=== PATIENT | male | born 1980 | race African-American/Black ===

== ENCOUNTER 2024-04-18 03:33 | Inpatient (IN) | payer MEDICAID ==
[~2024-04-18] VITALS: Ht 182.9 cm; Wt 84.8 kg
[2024-04-18 04:19] VITALS: O2SAT 96
[2024-04-18 05:15] LABS: BASOPHILS % 0.3 % (0.0-2.0); DIFFERENTIAL COMMENT 0; EOSINOPHILS % 0.3 % (0.0-5.0); HEMATOCRIT. 50.5 % (42.0-52.0); HEMOGLOBIN. 16.3 g/dL (14.0-18.0); LYMPHOCYTES % 7.9 % (20.0-50.0); MEAN CORPUSCULAR HEMOGLOBIN 30.6 pg (28.0-32.0); MEAN CORPUSCULAR HGB CONC 32.3 g/dL (31.0-37.0); MEAN CORPUSCULAR VOLUME 94.8 fL (80.0-94.0); MEAN PLATELET VOLUME 10.7 fl (7.4-10.4); NEUTROPHILS % 88.5 % (40.0-76.0); PLATELET 185 x1000/uL (130-400); RED BLOOD CELL COUNT 5.33 mill/uL (4.7-6.1); RED CELL DISTRIBUTION WIDTH 14.6 % (11.6-14.6); WHITE BLOOD COUNT 7.7 x1000/uL (4.5-11.0)
[2024-04-18 05:24] LABS: CHLORIDE 102 mEq/L (98-107); SODIUM 138 mEq/L (136-145)
[2024-04-18 05:25] LABS: CALCIUM 10.2 mg/dL (8.7-10.4); CARBON DIOXIDE 27 mEq/L (21-32)
[2024-04-18 05:30] LABS: GLUCOSE 122 mg/dL (70-105); UREA NITROGEN BLOOD 18 mg/dL (9-23)
[2024-04-18 05:32] LABS: ALANINE AMINOTRANSFERASE 30 IU/L (10-49); ALBUMIN 4.9 g/dL (3.2-4.8); ASPARTATE AMINOTRANSFERASE 20 IU/L (<34); BILIRUBIN DIRECT 0.1 mg/dL (<=3.0); BILIRUBIN TOTAL 0.4 mg/dL (0.1-1.0)
[2024-04-18 06:13] LABS: TROPONIN I HIGH SENSITIVITY < 4 ng/L (3.0-53)
[2024-04-18 06:34] LABS: INR 0.9; PROTHROMBIN TIME 10.6 sec (9.6-11.0)
[2024-04-18] MEDS: ONDANSETRON HCL 4MG/2ML INJ IV NR (08:06)
[2024-04-18] MEDS: KETOROLAC 30MG/ML VIAL IV NR (08:06)
[2024-04-18] MEDS: MORPHINE SULFATE 4 MG/ML INJ (FOR IV/IM USE) IV NR (08:06)
[2024-04-18] MEDS: ONDANSETRON HCL 4MG/2ML INJ IV STA (08:07)
[2024-04-18] MEDS: MORPHINE SULFATE 4 MG/ML INJ (FOR IV/IM USE) IV STA (08:07)
[2024-04-18] MEDS: KETOROLAC 30MG/ML VIAL IV STA (08:07)
[2024-04-18] MEDS ORDERED: HYDRALAZINE 20MG/ML VIAL IV PRN (10:30)
[2024-04-18] MEDS: SODIUM CHLORIDE 0.9% 1,000 ML IV SCH (11:00)
[2024-04-18 11:03] VITALS: BP 121/71; PULSE 18; RESP 20; TEMP 36.6
[2024-04-18] MEDS ORDERED: NALOXONE HCL 0.4MG/ML VIAL IV PRN (11:45)
[2024-04-18] MEDS ORDERED: HYDRALAZINE 10 MG in SODIUM CHLORIDE 0.9% 49.5 ML IV PRN (11:45)
[2024-04-18] MEDS: ONDANSETRON HCL 4MG/2ML INJ IV PRN (11:51)
[2024-04-18] MEDS: MORPHINE SULFATE 2 MG/ML INJ (NOT FOR IM USE) IV PRN (11:51)
[2024-04-18 12:00] VITALS: BP 121/61; PULSE 54; RESP 19; TEMP 36.3; O2SAT 98
[2024-04-18] MEDS: ENOXAPARIN 40MG/0.4ML SYR SUBCUT SCH (12:20)
[2024-04-18] MEDS: ACETAMINOPHEN 325MG TABLET PO PRN (15:23)
[2024-04-18 20:00] VITALS: BP 132/72; PULSE 60; RESP 18; TEMP 36.6; O2SAT 96
[2024-04-19 04:00] VITALS: BP 135/89; PULSE 64; RESP 20; TEMP 36.7; O2SAT 99
[2024-04-19 04:03] LABS: *AMPHETAMINES SCREEN URINE NEGATIVE (NEGATIVE); *BARBITURATES SCREEN URINE NEGATIVE (NEGATIVE); *BENZODIAZEPINES SCREEN URINE NEGATIVE (NEGATIVE); *COCAINE SCREEN URINE NEGATIVE (NEGATIVE); CANNABINOID URINE SCREEN NEGATIVE (NEGATIVE); ECSTASY MDMA SCREEN URINE NEGATIVE (NEGATIVE); METHADONE URINE SCREEN NEGATIVE (NEGATIVE); OPIATES URINE SCREEN PRESUMPTIVE POSITIVE (NEGATIVE); PHENCYCLIDINE URINE SCREEN NEGATIVE (NEGATIVE)
[2024-04-19 04:33] LABS: CLARITY URINE CLEAR (CLEAR); COLOR URINE YELLOW (YELLOW)
[2024-04-19 04:34] LABS: GLUCOSE URINE NEGATIVE (NEGATIVE); KETONES URINE NEGATIVE (NEGATIVE); LEUKOCYTE ESTERASE URINE NEGATIVE (NEGATIVE); NITRITE URINE NEGATIVE (NEGATIVE); OCCULT BLOOD URINE NEGATIVE (NEGATIVE); PROTEIN URINE TRACE (NEGATIVE); SPECIFIC GRAVITY URINE >1.030 (1.005-1.030); UROBILINOGEN URINE 0.2 E.U./dL (0.2-1.0)
[2024-04-19 06:06] LABS: RBC URINE 0-2 /hpf (0-2); WBC URINE 0-2 /hpf (0-2)
[2024-04-19 06:07] LABS: SQUAMOUS EPITHELIAL CELL URINE NONE SEEN /lpf (RARE/1+)
[2024-04-19 06:08] LABS: BACTERIA URINE NONE SEEN
[2024-04-19 08:00] VITALS: BP 120/66; PULSE 63; RESP 21; TEMP 36.4; O2SAT 97
[2024-04-19 08:30] LABS: BASOPHILS % 0.2 % (0.0-2.0); DIFFERENTIAL COMMENT 0; EOSINOPHILS % 0.1 % (0.0-5.0); HEMATOCRIT. 47.7 % (42.0-52.0); HEMOGLOBIN. 15.6 g/dL (14.0-18.0); LYMPHOCYTES % 11.9 % (20.0-50.0); MEAN CORPUSCULAR HEMOGLOBIN 30.7 pg (28.0-32.0); MEAN CORPUSCULAR HGB CONC 32.8 g/dL (31.0-37.0); MEAN CORPUSCULAR VOLUME 93.7 fL (80.0-94.0); MEAN PLATELET VOLUME 10.5 fl (7.4-10.4); MONOCYTES % 11.5 % (2.0-8.0); NEUTROPHILS % 76.3 % (40.0-76.0); PLATELET 157 x1000/uL (130-400); RED BLOOD CELL COUNT 5.09 mill/uL (4.7-6.1); RED CELL DISTRIBUTION WIDTH 14.1 % (11.6-14.6); WHITE BLOOD COUNT 5.7 x1000/uL (4.5-11.0)
[2024-04-19 08:46] LABS: CHLORIDE 108 mEq/L (98-107); POTASSIUM 3.8 mEq/L (3.5-5.1); SODIUM 142 mEq/L (136-145)
[2024-04-19 08:47] LABS: CALCIUM 8.7 mg/dL (8.7-10.4); CARBON DIOXIDE 28 mEq/L (21-32)
[2024-04-19 08:52] LABS: CREATININE 0.9 mg/dL (0.6-1.3); GLUCOSE 119 mg/dL (70-105); UREA NITROGEN BLOOD 17 mg/dL (9-23)
[2024-04-19] MEDS: PANTOPRAZOLE SODIUM 40 MG/VIAL IV SCH (09:13)
[2024-04-19] MEDS: BISACODYL 10MG SUPP PR NR (11:51)
[2024-04-19 12:00] VITALS: BP 130/78; PULSE 50; RESP 20; TEMP 36.4; O2SAT 98
[2024-04-19 16:00] VITALS: BP 128/76; PULSE 62; RESP 20; TEMP 36.4; O2SAT 99
[2024-04-19] MEDS: DEXT 5%/0.9% NACL KCL 20MEQ/L 1,000 ML IV SCH (16:02)
[2024-04-19] MEDS: ZOLPIDEM TARTRATE 5MG TABLET PO PRN (23:28)
[2024-04-20 04:00] VITALS: BP 130/83; PULSE 83; RESP 20; TEMP 36.5; O2SAT 95
[2024-04-20 08:00] VITALS: BP 137/81; PULSE 63; RESP 18; TEMP 37.1; O2SAT 97
[2024-04-20 16:00] VITALS: BP 134/64; PULSE 56; RESP 20; TEMP 36.6; O2SAT 98
[2024-04-20 20:00] VITALS: BP 129/74; PULSE 90; RESP 19; TEMP 36.7; O2SAT 99
[2024-04-21 04:00] VITALS: BP 134/84; PULSE 100; RESP 19; TEMP 36.3; O2SAT 100
[2024-04-21 07:14] LABS: CARBON DIOXIDE 29 mEq/L (21-32); CHLORIDE 104 mEq/L (98-107); POTASSIUM 4.1 mEq/L (3.5-5.1); SODIUM 144 mEq/L (136-145)
[2024-04-21 07:15] LABS: CALCIUM 9.9 mg/dL (8.7-10.4)
[2024-04-21 07:20] LABS: CREATININE 1.1 mg/dL (0.6-1.3); GLUCOSE 106 mg/dL (70-105); UREA NITROGEN BLOOD 15 mg/dL (9-23)
[2024-04-21 07:28] LABS: HEMATOCRIT. 51.6 % (42.0-52.0); HEMOGLOBIN. 16.5 g/dL (14.0-18.0); MEAN CORPUSCULAR HEMOGLOBIN 30.5 pg (28.0-32.0); MEAN CORPUSCULAR HGB CONC 32.1 g/dL (31.0-37.0); MEAN CORPUSCULAR VOLUME 95.3 fL (80.0-94.0); MEAN PLATELET VOLUME 10.9 fl (7.4-10.4); PLATELET 156 x1000/uL (130-400); RED BLOOD CELL COUNT 5.41 mill/uL (4.7-6.1); RED CELL DISTRIBUTION WIDTH 14.4 % (11.6-14.6); WHITE BLOOD COUNT 5.3 x1000/uL (4.5-11.0)
[2024-04-21] MEDS ORDERED: BISACODYL 10MG SUPP PR PRN (07:30)
[2024-04-21 09:59] LABS: DIFFERENTIAL COMMENT 1
[2024-04-21] MEDS ORDERED: BUPIVACAINE HCL/PF 0.5% (5MG/ML) 10ML ONE (12:46)
[2024-04-21] MEDS ORDERED: ROCURONIUM BROMIDE 10MG/ML VIAL 5ML IV ONE (13:26)
[2024-04-21] MEDS ORDERED: SUCCINYLCHOLINE CHLORIDE 200MG/10ML IV ONE (13:26)
[2024-04-21] MEDS ORDERED: PROPOFOL 200MG/20ML VIAL IV ONE (13:26)
[2024-04-21] MEDS ORDERED: MIDAZOLAM HCL 2 MG/2 ML VIAL ONE (13:27)
[2024-04-21] MEDS ORDERED: FENTANYL CITRATE/PF 50MCG/ML 2ML VIAL ONE (13:27)
[2024-04-21] MEDS ORDERED: HYDROMORPHONE HCL/PF 2MG/ML INJ ONE ×2 (13:57→14:53)
[2024-04-21] MEDS ORDERED: SUGAMMADEX SODIUM 200MG/2ML VIAL IV ONE (14:42)
[2024-04-21] MEDS: MORPHINE SULFATE 4 MG/ML INJ (FOR IV/IM USE) IV PRN (15:22)
[2024-04-21 16:00] VITALS: BP 132/99; PULSE 114; RESP 20; TEMP 36.6; O2SAT 98
[2024-04-21] MEDS: HYDROMORPHONE HCL/PF 1MG/ML INJ IV NR (16:12)
[2024-04-21] MEDS: ONDANSETRON HCL 4MG/2ML INJ IV PRN (18:31)
[2024-04-21 20:00] VITALS: BP 154/83; PULSE 85; RESP 20; TEMP 36.6; O2SAT 97
[2024-04-21 20:21] LABS: PLATELET ESTIMATE NORMAL
[2024-04-21] MEDS: FAMOTIDINE 20MG/2ML VIAL IV SCH (22:18)
[2024-04-22] VITALS: BP 128/73; PULSE 79; RESP 16; TEMP 36.9; O2SAT 100
[2024-04-22 04:00] VITALS: BP 101/62; PULSE 110; RESP 18; TEMP 36.4; O2SAT 99
[2024-04-22 06:18] LABS: EOSINOPHILS % 0.1 % (0.0-5.0); HEMATOCRIT. 47.5 % (42.0-52.0); HEMOGLOBIN. 15.5 g/dL (14.0-18.0); LYMPHOCYTES % 7.3 % (20.0-50.0); MEAN CORPUSCULAR HEMOGLOBIN 30.9 pg (28.0-32.0); MEAN CORPUSCULAR HGB CONC 32.8 g/dL (31.0-37.0); MEAN CORPUSCULAR VOLUME 94.4 fL (80.0-94.0); MONOCYTES % 14.6 % (2.0-8.0); RED BLOOD CELL COUNT 5.03 mill/uL (4.7-6.1); RED CELL DISTRIBUTION WIDTH 14.3 % (11.6-14.6); WHITE BLOOD COUNT 5.8 x1000/uL (4.5-11.0)
[2024-04-22 07:27] LABS: DIFFERENTIAL COMMENT 1; MEAN PLATELET VOLUME 10.5 fl (7.4-10.4); PLATELET 166 x1000/uL (130-400)
[2024-04-22 08:00] VITALS: BP 126/73; PULSE 113; RESP 20; TEMP 36.4; O2SAT 98
[2024-04-22] MEDS ORDERED: ENOXAPARIN 40MG/0.4ML SYR SUBCUT SCH (09:00)
[2024-04-22] MEDS: DEXT 5%/0.45% NACL KCL 20MEQ/L 1,000 ML IV SCH (09:15)
[2024-04-22 10:18] LABS: CHLORIDE 104 mEq/L (98-107); POTASSIUM 3.9 mEq/L (3.5-5.1); SODIUM 141 mEq/L (136-145)
[2024-04-22 10:19] LABS: CARBON DIOXIDE 30 mEq/L (21-32)
[2024-04-22 10:24] LABS: CREATININE 0.9 mg/dL (0.6-1.3); GLUCOSE 153 mg/dL (70-105); UREA NITROGEN BLOOD 16 mg/dL (9-23)
[2024-04-22 12:00] VITALS: BP 131/76; PULSE 83; RESP 18; TEMP 36.4; O2SAT 100
[2024-04-22] MEDS ORDERED: QUET300T2 PO (12:01)
[2024-04-22] MEDS ORDERED: BUPR300T52 PO (12:03)
[2024-04-22] MEDS: BUPROPION HCL 150MG TABLET XL 24HR PO SCH (14:00)
[2024-04-22] MEDS: QUETIAPINE FUMARATE 50MG TABLET PO SCH (14:23)
[2024-04-22 16:00] VITALS: BP 117/64; PULSE 134; RESP 18; TEMP 36.5; O2SAT 97
[2024-04-22 20:00] VITALS: BP 135/77; PULSE 85; RESP 18; TEMP 36.8; O2SAT 99
[2024-04-23] VITALS: BP 133/70; PULSE 103; RESP 17; TEMP 36.7; O2SAT 97
[2024-04-23 04:00] VITALS: BP 145/69; PULSE 82; RESP 19; TEMP 36.9; O2SAT 98
[2024-04-23 08:00] VITALS: BP 146/87; PULSE 136; RESP 19; TEMP 36.7; O2SAT 99
[2024-04-23 12:00] VITALS: BP 140/82; PULSE 128; RESP 19; TEMP 36.8; O2SAT 98
[2024-04-23 16:00] VITALS: BP 126/83; PULSE 125; RESP 19; TEMP 36.9; O2SAT 97
[2024-04-23 20:00] VITALS: BP 110/59; PULSE 111; RESP 19; TEMP 36.9; O2SAT 91
[2024-04-24] VITALS: BP 117/66; PULSE 89; RESP 16; TEMP 36.9; O2SAT 100
[2024-04-24 04:00] VITALS: BP 135/81; PULSE 105; RESP 17; TEMP 36.3; O2SAT 99
[2024-04-24 07:07] LABS: BASOPHILS % 0.1 % (0.0-2.0); DIFFERENTIAL COMMENT 0; EOSINOPHILS % 0.5 % (0.0-5.0); HEMATOCRIT. 39.9 % (42.0-52.0); HEMOGLOBIN. 13.3 g/dL (14.0-18.0); LYMPHOCYTES % 14.1 % (20.0-50.0); MEAN CORPUSCULAR HGB CONC 33.2 g/dL (31.0-37.0); MEAN CORPUSCULAR VOLUME 93.4 fL (80.0-94.0); MEAN PLATELET VOLUME 10.4 fl (7.4-10.4); MONOCYTES % 10.1 % (2.0-8.0); NEUTROPHILS % 75.2 % (40.0-76.0); PLATELET 142 x1000/uL (130-400); RED BLOOD CELL COUNT 4.28 mill/uL (4.7-6.1); RED CELL DISTRIBUTION WIDTH 13.8 % (11.6-14.6); WHITE BLOOD COUNT 6.8 x1000/uL (4.5-11.0)
[2024-04-24 07:27] LABS: CARBON DIOXIDE 28 mEq/L (21-32); CHLORIDE 103 mEq/L (98-107); POTASSIUM 3.7 mEq/L (3.5-5.1); SODIUM 139 mEq/L (136-145)
[2024-04-24 07:28] LABS: CALCIUM 8.4 mg/dL (8.7-10.4)
[2024-04-24 07:33] LABS: CREATININE 0.9 mg/dL (0.6-1.3); GLUCOSE 126 mg/dL (70-105); UREA NITROGEN BLOOD 16 mg/dL (9-23)
[2024-04-24 08:00] VITALS: BP 128/88; PULSE 112; RESP 20; TEMP 37.7; O2SAT 95
[2024-04-24 12:00] VITALS: BP 123/88; PULSE 99; RESP 20; TEMP 36.7; O2SAT 96
[2024-04-24] MEDS: BUPROPION HCL 150MG TABLET XL 24HR PO SCH (14:30)
[2024-04-24] MEDS: QUETIAPINE FUMARATE 200MG TABLET PO NR (14:34)
[2024-04-24 16:00] VITALS: BP 130/82; PULSE 124; RESP 21; TEMP 38.1
[2024-04-24 20:00] VITALS: BP 132/64; PULSE 102; RESP 19; TEMP 36.7; O2SAT 100
[2024-04-24] MEDS: QUETIAPINE FUMARATE 200MG TABLET PO SCH (20:36)
[2024-04-24] MEDS: QUETIAPINE FUMARATE 50MG TABLET PO SCH (20:36)
[2024-04-25] VITALS: BP 128/88; PULSE 115; RESP 20; TEMP 36.9; O2SAT 100
[2024-04-25 04:00] VITALS: BP 130/82; PULSE 112; RESP 20; TEMP 37; O2SAT 100
[2024-04-25 07:32] LABS: BASOPHILS % 0.1 % (0.0-2.0); DIFFERENTIAL COMMENT 0; EOSINOPHILS % 0.4 % (0.0-5.0); HEMATOCRIT. 38.2 % (42.0-52.0); HEMOGLOBIN. 12.5 g/dL (14.0-18.0); LYMPHOCYTES % 14.2 % (20.0-50.0); MEAN CORPUSCULAR HEMOGLOBIN 30.9 pg (28.0-32.0); MEAN CORPUSCULAR HGB CONC 32.9 g/dL (31.0-37.0); MEAN CORPUSCULAR VOLUME 93.9 fL (80.0-94.0); MEAN PLATELET VOLUME 10.4 fl (7.4-10.4); NEUTROPHILS % 71.3 % (40.0-76.0); PLATELET 166 x1000/uL (130-400); RED BLOOD CELL COUNT 4.06 mill/uL (4.7-6.1); RED CELL DISTRIBUTION WIDTH 14.1 % (11.6-14.6); WHITE BLOOD COUNT 8.2 x1000/uL (4.5-11.0)
[2024-04-25 07:33] LABS: CARBON DIOXIDE 27 mEq/L (21-32); CHLORIDE 104 mEq/L (98-107); POTASSIUM 3.7 mEq/L (3.5-5.1); SODIUM 138 mEq/L (136-145)
[2024-04-25 07:34] LABS: CALCIUM 8.2 mg/dL (8.7-10.4)
[2024-04-25 07:39] LABS: GLUCOSE 120 mg/dL (70-105); UREA NITROGEN BLOOD 11 mg/dL (9-23)
[2024-04-25 08:00] VITALS: BP 103/58; PULSE 129; RESP 18; TEMP 37.5; O2SAT 95
[2024-04-25] MEDS: ONDANSETRON HCL 4MG/2ML INJ IV PRN (09:20)
[2024-04-25 12:00] VITALS: BP 128/72; PULSE 115; RESP 19; TEMP 36.6; O2SAT 95
[2024-04-25 16:00] VITALS: BP 111/75; PULSE 112; RESP 18; TEMP 36.7; O2SAT 95
[2024-04-25] MEDS ORDERED: NALOXONE HCL 0.4MG/ML VIAL IV PRN (17:30)
[2024-04-26 05:00] VITALS: BP 125/71; PULSE 109; RESP 20; TEMP 36.6; O2SAT 92
[2024-04-26 07:33] LABS: CHLORIDE 106 mEq/L (98-107); POTASSIUM 3.6 mEq/L (3.5-5.1); SODIUM 142 mEq/L (136-145)
[2024-04-26 07:34] LABS: CALCIUM 8.1 mg/dL (8.7-10.4); CARBON DIOXIDE 29 mEq/L (21-32)
[2024-04-26 07:40] LABS: GLUCOSE 120 mg/dL (70-105); UREA NITROGEN BLOOD 9 mg/dL (9-23)
[2024-04-26 08:00] VITALS: BP 120/71; PULSE 109; RESP 19; TEMP 36.4; O2SAT 98
[2024-04-26 08:23] LABS: BASOPHILS % 0.2 % (0.0-2.0); EOSINOPHILS % 1.1 % (0.0-5.0); HEMATOCRIT. 35.5 % (42.0-52.0); HEMOGLOBIN. 11.7 g/dL (14.0-18.0); LYMPHOCYTES % 12.9 % (20.0-50.0); MEAN CORPUSCULAR HEMOGLOBIN 30.4 pg (28.0-32.0); MEAN CORPUSCULAR VOLUME 92.2 fL (80.0-94.0); MEAN PLATELET VOLUME 10.2 fl (7.4-10.4); MONOCYTES % 13.4 % (2.0-8.0); NEUTROPHILS % 72.4 % (40.0-76.0); PLATELET 214 x1000/uL (130-400); RED BLOOD CELL COUNT 3.84 mill/uL (4.7-6.1); RED CELL DISTRIBUTION WIDTH 13.8 % (11.6-14.6); WHITE BLOOD COUNT 8.2 x1000/uL (4.5-11.0)
[2024-04-26 12:00] VITALS: BP 120/71; PULSE 109; RESP 19; TEMP 36.4; O2SAT 98
[2024-04-26] MEDS: MORPHINE SULFATE 4 MG/ML INJ (FOR IV/IM USE) IV PRN (16:29)
[2024-04-26 20:00] VITALS: BP 135/85; PULSE 102; RESP 20; TEMP 36.8; O2SAT 96
[2024-04-26 23:00] VITALS: BP 138/87; PULSE 104; RESP 20; TEMP 36.6; O2SAT 95
[2024-04-27 04:55] VITALS: BP 115/73; PULSE 107; RESP 20; TEMP 36.3; O2SAT 98
[2024-04-27 08:00] VITALS: BP 117/72; PULSE 101; RESP 20; TEMP 37.2; O2SAT 95
[2024-04-27 16:00] VITALS: BP 132/76; PULSE 104; RESP 19; TEMP 36.7; O2SAT 95
[2024-04-27] MEDS: QUETIAPINE FUMARATE 50MG TABLET PO NR (17:28)
[2024-04-27] MEDS: QUETIAPINE FUMARATE 200MG TABLET PO NR (17:28)
[2024-04-27 20:00] VITALS: BP 129/71; PULSE 78; RESP 16; TEMP 36.6; O2SAT 98
[2024-04-28] VITALS: BP 104/63; PULSE 62; RESP 17; TEMP 37; O2SAT 100
[2024-04-28 04:00] VITALS: BP 103/58; PULSE 103; RESP 19; TEMP 36.2; O2SAT 98
[2024-04-28] MEDS ORDERED: BUPIVACAINE HCL/PF 0.5% (5MG/ML) 10ML ONE (07:58)
[2024-04-28] MEDS ORDERED: POLYMYXIN B SULFATE 500000 UNITS/VIAL ONE (07:59)
[2024-04-28 08:00] VITALS: BP 97/57; PULSE 106; RESP 20; TEMP 36.5; O2SAT 96
[2024-04-28] MEDS: QUETIAPINE FUMARATE 50MG TABLET PO SCH (09:00)
[2024-04-28] MEDS: QUETIAPINE FUMARATE 200MG TABLET PO SCH (09:00)
[2024-04-28] MEDS: LIDOCAINE HCL 1% 10 MG/ML 10ML VIAL ONE (09:30)
[2024-04-28 09:47] LABS: HEMATOCRIT. 40.9 % (42.0-52.0); HEMOGLOBIN. 13.7 g/dL (14.0-18.0); MEAN CORPUSCULAR HEMOGLOBIN 31.1 pg (28.0-32.0); MEAN CORPUSCULAR HGB CONC 33.6 g/dL (31.0-37.0); MEAN CORPUSCULAR VOLUME 92.6 fL (80.0-94.0); MEAN PLATELET VOLUME 9.3 fl (7.4-10.4); PLATELET 343 x1000/uL (130-400); RED BLOOD CELL COUNT 4.42 mill/uL (4.7-6.1); WHITE BLOOD COUNT 6.1 x1000/uL (4.5-11.0)
[2024-04-28 09:53] LABS: CHLORIDE 102 mEq/L (98-107); POTASSIUM 3.9 mEq/L (3.5-5.1); SODIUM 139 mEq/L (136-145)
[2024-04-28 09:54] LABS: CALCIUM 8.9 mg/dL (8.7-10.4); CARBON DIOXIDE 29 mEq/L (21-32)
[2024-04-28 09:57] LABS: INR 1.1; PARTIAL THROMBOPLASTIN TIME 26.3 sec (23.4-31.0); PROTHROMBIN TIME 11.8 sec (9.6-11.0)
[2024-04-28 09:59] LABS: GLUCOSE 119 mg/dL (70-105); UREA NITROGEN BLOOD 7 mg/dL (9-23)
[2024-04-28 10:04] LABS: DIFFERENTIAL COMMENT 1
[2024-04-28 12:00] VITALS: BP 99/60; PULSE 110; RESP 19; TEMP 36.4; O2SAT 97
[2024-04-28] MEDS ORDERED: PROPOFOL 200MG/20ML VIAL IV ONE (12:26)
[2024-04-28] MEDS ORDERED: FENTANYL CITRATE/PF 50MCG/ML 5ML VIAL ONE (12:26)
[2024-04-28] MEDS ORDERED: LIDOCAINE HCL 2% 5ML SYRINGE IV ONE (12:26)
[2024-04-28] MEDS ORDERED: SUCCINYLCHOLINE CHLORIDE 200MG/10ML IV ONE (12:26)
[2024-04-28] MEDS ORDERED: ROCURONIUM BROMIDE 10MG/ML VIAL 5ML IV ONE ×2 (12:44→14:19)
[2024-04-28] MEDS: METRONIDAZOLE 500 MG PREMIX 100 ML IV NR (13:00)
[2024-04-28] MEDS ORDERED: PHENYLEPHRINE 50MG/250ML PMX 250 ML IV ONE (13:57)
[2024-04-28] MEDS ORDERED: ALBUMIN HUMAN 12.5G/250ML (5%) IV ONE (13:59)
[2024-04-28] MEDS ORDERED: HYDROMORPHONE HCL/PF 1MG/ML INJ ONE ×2 (14:20→15:01)
[2024-04-28] MEDS ORDERED: NEOSTIGMINE METHYLSULFATE 1MG/ML 10 ML VIAL ONE (14:57)
[2024-04-28] MEDS ORDERED: GLYCOPYRROLATE 0.2 MG/ML 2ML VIAL ONE ×2 (14:57→14:58)
[2024-04-28] MEDS ORDERED: GLYCOPYRROLATE 0.2 MG/ML 2ML VIAL IV PRN (15:15)
[2024-04-28] MEDS ORDERED: HYDRALAZINE 20MG/ML VIAL IV PRN (15:15)
[2024-04-28] MEDS ORDERED: ONDANSETRON HCL 4MG/2ML INJ IV PRN (15:15)
[2024-04-28] MEDS ORDERED: HYDROMORPHONE HCL/PF 1MG/ML INJ IV PRN (15:20)
[2024-04-28] MEDS: HYDROMORPHONE HCL/PF 1MG/ML INJ IV PRN ×2 (15:38→21:24)
[2024-04-28 16:00] VITALS: BP 121/77; PULSE 129; RESP 19; TEMP 36.5; O2SAT 100
[2024-04-28] MEDS: ALBUMIN HUMAN 25GM/500ML (5%) IV NR (16:02)
[2024-04-28 16:19] LABS: PLATELET ESTIMATE NORMAL
[2024-04-28 20:00] VITALS: BP_SYST 117; BP_SYST 122; BP_DIAS 68; BP_DIAS 71; PULSE 72; PULSE 83; RESP 17; RESP 20; TEMP 36.3; TEMP 37; O2SAT 93; O2SAT 99
[2024-04-29] VITALS: BP 117/71; PULSE 72; RESP 20; TEMP 36.3; O2SAT 93
[2024-04-29 04:00] VITALS: BP 126/68; PULSE 61; RESP 17; TEMP 36.2; O2SAT 100
[2024-04-29 08:00] VITALS: BP 119/75; PULSE 140; RESP 22; TEMP 35.6; O2SAT 95
[2024-04-29 09:10] LABS: HEMATOCRIT. 43.4 % (42.0-52.0); HEMOGLOBIN. 14.1 g/dL (14.0-18.0); MEAN CORPUSCULAR HEMOGLOBIN 30.4 pg (28.0-32.0); MEAN CORPUSCULAR HGB CONC 32.6 g/dL (31.0-37.0); MEAN CORPUSCULAR VOLUME 93.3 fL (80.0-94.0); MEAN PLATELET VOLUME 8.9 fl (7.4-10.4); PLATELET 291 x1000/uL (130-400); RED BLOOD CELL COUNT 4.65 mill/uL (4.7-6.1); RED CELL DISTRIBUTION WIDTH 14.3 % (11.6-14.6); WHITE BLOOD COUNT 20.2 x1000/uL (4.5-11.0)
[2024-04-29 09:11] LABS: DIFFERENTIAL COMMENT 1
[2024-04-29 09:13] LABS: CHLORIDE 107 mEq/L (98-107); POTASSIUM 5.5 mEq/L (3.5-5.1); SODIUM 140 mEq/L (136-145)
[2024-04-29 09:14] LABS: CARBON DIOXIDE 22 mEq/L (21-32)
[2024-04-29 09:15] LABS: CALCIUM 8.3 mg/dL (8.7-10.4)
[2024-04-29 09:19] LABS: GLUCOSE 158 mg/dL (70-105); UREA NITROGEN BLOOD 16 mg/dL (9-23)
[2024-04-29 09:30] LABS: CREATININE 1.4 mg/dL (0.6-1.3)
[2024-04-29] MEDS: HYDROMORPHONE HCL/PF 2MG/ML INJ IV PRN ×2 (09:44→13:16)
[2024-04-29] MEDS: HALOPERIDOL LACTATE 5MG/ML VIAL IM PRN (13:30)
[2024-04-29 16:00] VITALS: BP 109/78; PULSE 133; RESP 21; TEMP 37.2; O2SAT 94
[2024-04-29 20:00] VITALS: BP 114/77; PULSE 140; RESP 20; TEMP 37.5; O2SAT 95
[2024-04-29 21:40] LABS: PLATELET ESTIMATE NORMAL
[2024-04-30] VITALS: BP 107/73; PULSE 138; RESP 20; TEMP 36.1; O2SAT 97
[2024-04-30 04:00] VITALS: BP 110/78; PULSE 124; RESP 20; TEMP 35.8; O2SAT 100
[2024-04-30 08:00] VITALS: BP 108/72; PULSE 127; RESP 20; TEMP 35.9; O2SAT 97
[2024-04-30 08:07] LABS: HEMATOCRIT. 40.8 % (42.0-52.0); HEMOGLOBIN. 13.1 g/dL (14.0-18.0); MEAN CORPUSCULAR HEMOGLOBIN 29.5 pg (28.0-32.0); MEAN CORPUSCULAR HGB CONC 32.2 g/dL (31.0-37.0); MEAN CORPUSCULAR VOLUME 91.7 fL (80.0-94.0); MEAN PLATELET VOLUME 9.3 fl (7.4-10.4); PLATELET 280 x1000/uL (130-400); RED BLOOD CELL COUNT 4.45 mill/uL (4.7-6.1); RED CELL DISTRIBUTION WIDTH 14.4 % (11.6-14.6); WHITE BLOOD COUNT 24.2 x1000/uL (4.5-11.0)
[2024-04-30 08:11] LABS: POTASSIUM 5.4 mEq/L (3.5-5.1)
[2024-04-30 08:12] LABS: CALCIUM 8.8 mg/dL (8.7-10.4)
[2024-04-30 08:17] LABS: CREATININE 1.7 mg/dL (0.6-1.3); DIFFERENTIAL COMMENT 1
[2024-04-30 09:08] LABS: TROPONIN I HIGH SENSITIVITY < 4 ng/L (3.0-53)
[2024-04-30 11:27] LABS: PLATELET ESTIMATE NORMAL
[2024-04-30 12:00] VITALS: BP 108/77; PULSE 127; RESP 20; TEMP 36.2; O2SAT 96
[2024-04-30] MEDS: DEXTROSE 5% WATER 1,000 ML IV SCH (13:33)
[2024-04-30] MEDS: SODIUM CHLORIDE 0.9% 500 ML IV ONE (13:46)
[2024-04-30 16:00] VITALS: BP 132/46; PULSE 158; RESP 20; TEMP 36.8; O2SAT 96
[2024-04-30] MEDS: PIPERACILLIN/TAZO 3.375G/50ML IV SCH (16:01)
[2024-04-30] MEDS: SODIUM CHLORIDE 0.9% 1,000 ML IV SCH (16:02)
[2024-04-30] MEDS: METOPROLOL TARTRATE 5MG/5ML VIAL IV NR (17:46)
[2024-04-30] MEDS: SODIUM CHLORIDE 0.9% 1,000 ML IV NR (19:07)
[2024-04-30 20:00] VITALS: BP 118/44; PULSE 162; RESP 19; TEMP 38; O2SAT 97
[2024-04-30] MEDS: SODIUM CHLORIDE 0.9% (SEPSIS BOLUS) IV NR (21:00)
[2024-04-30] MEDS ORDERED: PIPERACILLIN/TAZO 3.375G/100ML 100 ML IV SCH (22:00)
[2024-04-30] MEDS: VANCOMYCIN 1G PREMIX 200 ML IV SCH (22:15)
[2024-04-30] MEDS: DEXT 5%/0.9% NACL 1,000 ML IV SCH (22:42)
[2024-05-01] VITALS (75 sets, daily range): BP systolic 83–118; BP diastolic 47–95; PULSE 104–131; RESP 10–27; TEMP 36.4–36.8; O2SAT 94–98
[2024-05-01] MEDS: SODIUM CHLORIDE 0.9% 500 ML IV NR (06:14)
[2024-05-01] MEDS ORDERED: VANCOMYCIN 1G PREMIX 200 ML IV SCH (08:00)
[2024-05-01 09:19] LABS: HEMOGLOBIN. 9.6 g/dL (14.0-18.0); MEAN CORPUSCULAR HEMOGLOBIN 30.1 pg (28.0-32.0); MEAN CORPUSCULAR HGB CONC 33.1 g/dL (31.0-37.0); MEAN PLATELET VOLUME 9.7 fl (7.4-10.4); PLATELET 191 x1000/uL (130-400); RED BLOOD CELL COUNT 3.19 mill/uL (4.7-6.1); RED CELL DISTRIBUTION WIDTH 14.5 % (11.6-14.6); WHITE BLOOD COUNT 29.8 x1000/uL (4.5-11.0)
[2024-05-01 09:26] LABS: DIFFERENTIAL COMMENT 1
[2024-05-01 09:30] LABS: CHLORIDE 110 mEq/L (98-107); POTASSIUM 4.4 mEq/L (3.5-5.1); SODIUM 142 mEq/L (136-145)
[2024-05-01 09:31] LABS: CARBON DIOXIDE 24 mEq/L (21-32)
[2024-05-01 09:32] LABS: CALCIUM 7.3 mg/dL (8.7-10.4)
[2024-05-01] MEDS: VANCOMYCIN 750MG/250ML 250 ML IV SCH (09:33)
[2024-05-01 09:36] LABS: CREATININE 1.5 mg/dL (0.6-1.3); GLUCOSE 136 mg/dL (70-105); UREA NITROGEN BLOOD 29 mg/dL (9-23)
[2024-05-01] MEDS ORDERED: DEXT 5%/0.9% NACL 500 ML IV NR (10:30)
[2024-05-01] MEDS: ALBUMIN HUMAN 12.5G/250ML (5%) IV NR (10:39)
[2024-05-01 18:41] LABS: PLATELET ESTIMATE NORMAL
[2024-05-02] VITALS (16 sets, daily range): BP systolic 93–150; BP diastolic 61–103; PULSE 65–134; RESP 14–26; TEMP 36.4–37.1; O2SAT 92–100
[2024-05-02 06:37] LABS: CHLORIDE 113 mEq/L (98-107); SODIUM 147 mEq/L (136-145)
[2024-05-02 06:38] LABS: CARBON DIOXIDE 25 mEq/L (21-32)
[2024-05-02 06:39] LABS: CALCIUM 7.9 mg/dL (8.7-10.4)
[2024-05-02 06:43] LABS: CREATININE 1.2 mg/dL (0.6-1.3); GLUCOSE 129 mg/dL (70-105)
[2024-05-02 06:44] LABS: UREA NITROGEN BLOOD 20 mg/dL (9-23)
[2024-05-02] MEDS: SODIUM CHLORIDE 0.9% 1,000 ML IV SCH (09:17)
[2024-05-02] MEDS: SODIUM CHLORIDE 0.9% (SEPSIS BOLUS) IV ONE (14:42)
[2024-05-02] MEDS: VANCOMYCIN 750MG/250ML 250 ML IV SCH (16:02)
[2024-05-02] MEDS: DIATR MEGLU/DIATRIZOATE SOLN 120ML ONE (20:37)
[2024-05-03] VITALS (7 sets, daily range): BP systolic 116–130; BP diastolic 60–81; PULSE 82–137; RESP 16–20; TEMP 36.1–37.6; O2SAT 95–99
[2024-05-03] MEDS: SODIUM CHLORIDE 0.9% 1,000 ML IV SCH (17:06)
[2024-05-03 21:51] LABS: BASOPHILS % 0.5 % (0.0-2.0); EOSINOPHILS % 0.3 % (0.0-5.0); HEMATOCRIT. 28.1 % (42.0-52.0); HEMOGLOBIN. 9.4 g/dL (14.0-18.0); LYMPHOCYTES % 10.6 % (20.0-50.0); MEAN CORPUSCULAR HEMOGLOBIN 30.7 pg (28.0-32.0); MEAN CORPUSCULAR HGB CONC 33.5 g/dL (31.0-37.0); MEAN CORPUSCULAR VOLUME 91.6 fL (80.0-94.0); MEAN PLATELET VOLUME 9.9 fl (7.4-10.4); MONOCYTES % 8.6 % (2.0-8.0); PLATELET 255 x1000/uL (130-400); RED BLOOD CELL COUNT 3.07 mill/uL (4.7-6.1); RED CELL DISTRIBUTION WIDTH 14.7 % (11.6-14.6); WHITE BLOOD COUNT 11.8 x1000/uL (4.5-11.0)
[2024-05-03 21:58] LABS: CHLORIDE 110 mEq/L (98-107); POTASSIUM 3.9 mEq/L (3.5-5.1); SODIUM 143 mEq/L (136-145)
[2024-05-03 21:59] LABS: CARBON DIOXIDE 24 mEq/L (21-32)
[2024-05-03 22:00] LABS: CALCIUM 7.9 mg/dL (8.7-10.4)
[2024-05-03 22:05] LABS: CREATININE 1.3 mg/dL (0.6-1.3); GLUCOSE 117 mg/dL (70-105); UREA NITROGEN BLOOD 10 mg/dL (9-23)
[2024-05-04 04:00] VITALS: BP 133/92; PULSE 133; RESP 20; TEMP 37.2; O2SAT 97
[2024-05-04 07:22] LABS: CALCIUM 8.1 mg/dL (8.7-10.4); CHLORIDE 109 mEq/L (98-107); POTASSIUM 3.5 mEq/L (3.5-5.1); SODIUM 143 mEq/L (136-145)
[2024-05-04 07:23] LABS: CARBON DIOXIDE 24 mEq/L (21-32)
[2024-05-04 07:28] LABS: CREATININE 1.3 mg/dL (0.6-1.3); GLUCOSE 108 mg/dL (70-105); UREA NITROGEN BLOOD 9 mg/dL (9-23)
[2024-05-04 07:35] LABS: BASOPHILS % 0.3 % (0.0-2.0); EOSINOPHILS % 0.3 % (0.0-5.0); HEMATOCRIT. 26.3 % (42.0-52.0); HEMOGLOBIN. 8.9 g/dL (14.0-18.0); LYMPHOCYTES % 8.3 % (20.0-50.0); MEAN CORPUSCULAR HEMOGLOBIN 30.8 pg (28.0-32.0); MEAN CORPUSCULAR VOLUME 90.5 fL (80.0-94.0); MEAN PLATELET VOLUME 9.8 fl (7.4-10.4); MONOCYTES % 10.6 % (2.0-8.0); NEUTROPHILS % 80.5 % (40.0-76.0); PLATELET 259 x1000/uL (130-400); RED CELL DISTRIBUTION WIDTH 14.5 % (11.6-14.6); WHITE BLOOD COUNT 10.8 x1000/uL (4.5-11.0)
[2024-05-04] MEDS ORDERED: HYDRALAZINE 20MG/ML VIAL IV PRN (10:45)
[2024-05-04] MEDS: BLOOD SUGAR DIAGNOSTIC STRIP TEST SCH (12:00)
[2024-05-04] MEDS: METOPROLOL TARTRATE 25MG TABLET PO SCH (13:15)
[2024-05-04] MEDS: HALOPERIDOL LACTATE 5MG/ML VIAL IM PRN (14:34)
[2024-05-04] MEDS: LORAZEPAM 2MG/ML INJ IV NR (14:36)
[2024-05-04 16:00] VITALS: BP 118/76; PULSE 80; RESP 18; TEMP 36.5; O2SAT 100
[2024-05-04] MEDS ORDERED: OLANZAPINE 10 MG/VIAL IM NR (18:30)
[2024-05-04 20:00] VITALS: BP 139/74; PULSE 117; RESP 22; TEMP 38.3; O2SAT 98
[2024-05-04] MEDS: FAT EMULSIONS 500 ML IV SCH (21:29)
[2024-05-04] MEDS: TOTAL PARENTERAL NUTRITION 2,300 ML IV SCH (21:31)
[2024-05-05 00:01] VITALS: BP 132/75; PULSE 90; RESP 22; TEMP 37.2; TEMP 38.3; O2SAT 98
[2024-05-05 04:00] VITALS: BP 118/69; PULSE 90; RESP 20; TEMP 36.7; TEMP 37.8; O2SAT 98
[2024-05-05 06:16] LABS: INR 1.1; PROTHROMBIN TIME 11.8 sec (9.6-11.0)
[2024-05-05 06:41] LABS: CHLORIDE 108 mEq/L (98-107); POTASSIUM 3.5 mEq/L (3.5-5.1); SODIUM 141 mEq/L (136-145)
[2024-05-05 06:42] LABS: CALCIUM 8.7 mg/dL (8.7-10.4); CARBON DIOXIDE 22 mEq/L (21-32)
[2024-05-05 06:47] LABS: CREATININE 1.2 mg/dL (0.6-1.3); GLUCOSE 150 mg/dL (70-105); UREA NITROGEN BLOOD 11 mg/dL (9-23)
[2024-05-05 06:48] LABS: ALBUMIN 3.5 g/dL (3.2-4.8)
[2024-05-05 06:49] LABS: ALANINE AMINOTRANSFERASE 7 IU/L (10-49); ASPARTATE AMINOTRANSFERASE 17 IU/L (<34); PHOSPHORUS 2.5 mg/dL (2.5-4.9)
[2024-05-05 08:00] VITALS: BP 125/79; PULSE 68; RESP 20; TEMP 37; O2SAT 99
[2024-05-05] MEDS ORDERED: NALOXONE HCL 0.4MG/ML VIAL IV PRN (08:30)
[2024-05-05] MEDS: MORPHINE SULFATE 2 MG/ML INJ (NOT FOR IM USE) IV PRN (08:42)
[2024-05-05 08:50] LABS: HEMATOCRIT. 30.1 % (42.0-52.0); HEMOGLOBIN. 10.2 g/dL (14.0-18.0); MEAN CORPUSCULAR HEMOGLOBIN 30.9 pg (28.0-32.0); MEAN PLATELET VOLUME 10.7 fl (7.4-10.4); PLATELET 299 x1000/uL (130-400); RED BLOOD CELL COUNT 3.31 mill/uL (4.7-6.1); RED CELL DISTRIBUTION WIDTH 14.7 % (11.6-14.6); WHITE BLOOD COUNT 12.5 x1000/uL (4.5-11.0)
[2024-05-05 08:59] LABS: DIFFERENTIAL COMMENT 1
[2024-05-05 12:00] VITALS: BP 110/67; PULSE 99; RESP 20; TEMP 36.7; O2SAT 95
[2024-05-05 16:00] VITALS: BP 101/66; PULSE 96; RESP 20; TEMP 36.4; O2SAT 100
[2024-05-05 17:51] LABS: PLATELET ESTIMATE NORMAL
[2024-05-05 20:00] VITALS: BP 124/72; PULSE 111; RESP 16; TEMP 36.1; O2SAT 98
[2024-05-06] VITALS: BP 106/72; PULSE 110; RESP 16; TEMP 36.3; O2SAT 95
[2024-05-06 04:00] VITALS: BP 121/72; PULSE 108; RESP 16; TEMP 36.2; O2SAT 99
[2024-05-06 07:16] LABS: BASOPHILS % 0.1 % (0.0-2.0); DIFFERENTIAL COMMENT 0; EOSINOPHILS % 0.7 % (0.0-5.0); HEMOGLOBIN. 10.1 g/dL (14.0-18.0); LYMPHOCYTES % 11.7 % (20.0-50.0); MEAN CORPUSCULAR HEMOGLOBIN 29.6 pg (28.0-32.0); MEAN CORPUSCULAR HGB CONC 33.5 g/dL (31.0-37.0); MEAN CORPUSCULAR VOLUME 88.4 fL (80.0-94.0); MEAN PLATELET VOLUME 9.2 fl (7.4-10.4); MONOCYTES % 10.8 % (2.0-8.0); NEUTROPHILS % 76.7 % (40.0-76.0); PLATELET 354 x1000/uL (130-400); RED BLOOD CELL COUNT 3.39 mill/uL (4.7-6.1); RED CELL DISTRIBUTION WIDTH 14.4 % (11.6-14.6); WHITE BLOOD COUNT 8.4 x1000/uL (4.5-11.0)
[2024-05-06 07:24] LABS: CALCIUM 8.4 mg/dL (8.7-10.4); CARBON DIOXIDE 22 mEq/L (21-32); CHLORIDE 110 mEq/L (98-107); POTASSIUM 3.5 mEq/L (3.5-5.1); SODIUM 142 mEq/L (136-145)
[2024-05-06 07:28] LABS: CREATININE 1.1 mg/dL (0.6-1.3)
[2024-05-06 07:29] LABS: GLUCOSE 152 mg/dL (70-105); TRIGLYCERIDE 120 mg/dL (0-150)
[2024-05-06 07:30] LABS: UREA NITROGEN BLOOD 13 mg/dL (9-23)
[2024-05-06 07:31] LABS: PHOSPHORUS 2.4 mg/dL (2.5-4.9)
[2024-05-06 20:00] VITALS: BP 120/70; PULSE 107; RESP 20; TEMP 36.6; O2SAT 99
[2024-05-06] MEDS: DIPHENHYDRAMINE 50MG/ML VIAL IV PRN (20:56)
[2024-05-06] MEDS: TOTAL PARENTERAL NUTRITION 2,300 ML IV SCH (20:58)
[2024-05-06] MEDS: LORAZEPAM 2MG/ML INJ IV PRN (21:27)
[2024-05-07 08:00] VITALS: BP 119/80; PULSE 108; RESP 22; TEMP 36.8; O2SAT 100
[2024-05-07 12:00] VITALS: BP 108/79; PULSE 116; RESP 16; TEMP 36.4; O2SAT 100
[2024-05-07 12:45] LABS: PHOSPHORUS 3.3 mg/dL (2.5-4.9)
[2024-05-07 16:00] VITALS: BP 119/62; PULSE 119; RESP 18; TEMP 37.6; O2SAT 98
[2024-05-08] VITALS: BP 148/89; PULSE 111; RESP 18; TEMP 36.5; O2SAT 97
[2024-05-08 04:00] VITALS: BP 129/79; PULSE 112; RESP 17; TEMP 36.1; O2SAT 98
[2024-05-08 08:00] VITALS: BP 112/72; PULSE 111; RESP 20; TEMP 36.2; O2SAT 100
[2024-05-08] MEDS ORDERED: BLOOD SUGAR DIAGNOSTIC STRIP TEST SCH (09:00)
[2024-05-08 12:00] VITALS: BP 151/75; PULSE 120; RESP 20; TEMP 36.5; O2SAT 99
[2024-05-08 13:18] LABS: BASOPHILS % 0.5 % (0.0-2.0); EOSINOPHILS % 0.6 % (0.0-5.0); HEMATOCRIT. 30.4 % (42.0-52.0); HEMOGLOBIN. 10.3 g/dL (14.0-18.0); LYMPHOCYTES % 9.1 % (20.0-50.0); MEAN CORPUSCULAR HEMOGLOBIN 30.8 pg (28.0-32.0); MEAN CORPUSCULAR HGB CONC 33.8 g/dL (31.0-37.0); MEAN CORPUSCULAR VOLUME 91.1 fL (80.0-94.0); MEAN PLATELET VOLUME 9.1 fl (7.4-10.4); MONOCYTES % 7.9 % (2.0-8.0); NEUTROPHILS % 81.9 % (40.0-76.0); PLATELET 399 x1000/uL (130-400); RED BLOOD CELL COUNT 3.34 mill/uL (4.7-6.1); RED CELL DISTRIBUTION WIDTH 14.7 % (11.6-14.6); WHITE BLOOD COUNT 10.7 x1000/uL (4.5-11.0)
[2024-05-08 13:37] LABS: CARBON DIOXIDE 23 mEq/L (21-32); CHLORIDE 109 mEq/L (98-107); POTASSIUM 4.3 mEq/L (3.5-5.1); SODIUM 143 mEq/L (136-145)
[2024-05-08 13:38] LABS: CALCIUM 8.8 mg/dL (8.7-10.4)
[2024-05-08 13:43] LABS: CREATININE 1.1 mg/dL (0.6-1.3); GLUCOSE 117 mg/dL (70-105); UREA NITROGEN BLOOD 13 mg/dL (9-23)
[2024-05-08 16:00] VITALS: BP 124/82; PULSE 120; RESP 20; TEMP 36.3; O2SAT 98
[2024-05-08] MEDS: CEFTRIAXONE 2GM/50ML 50 ML IV SCH (19:39)
[2024-05-09 04:00] VITALS: PULSE 111; RESP 20; TEMP 36.6
[2024-05-09 08:00] VITALS: BP 122/78; PULSE 114; RESP 20; TEMP 36.2
[2024-05-09 11:46] LABS: CARBON DIOXIDE 26 mEq/L (21-32); CHLORIDE 105 mEq/L (98-107); POTASSIUM 4.3 mEq/L (3.5-5.1); SODIUM 139 mEq/L (136-145)
[2024-05-09 11:47] LABS: CALCIUM 8.5 mg/dL (8.7-10.4)
[2024-05-09 11:52] LABS: GLUCOSE 115 mg/dL (70-105); UREA NITROGEN BLOOD 12 mg/dL (9-23)
[2024-05-09 12:21] VITALS: BP 132/79; PULSE 112; RESP 20; TEMP 36.5
[2024-05-09 16:00] VITALS: BP 112/85; PULSE 117; RESP 20; TEMP 36.1; O2SAT 98
[2024-05-09] MEDS: QUETIAPINE FUMARATE 200MG TABLET PO SCH (17:52)
[2024-05-09] MEDS: QUETIAPINE FUMARATE 50MG TABLET PO SCH (17:54)
[2024-05-09 23:42] VITALS: BP 111/68; PULSE 118; RESP 15; TEMP 36.6; O2SAT 98
[2024-05-10 04:00] VITALS: BP 108/65; PULSE 111; RESP 18; TEMP 36.6; O2SAT 99
[2024-05-10 08:00] VITALS: BP 110/74; PULSE 96; RESP 18; TEMP 36.1; O2SAT 100
[2024-05-10 12:00] VITALS: BP 95/54; PULSE 98; RESP 18; TEMP 36.6; O2SAT 100
[2024-05-10 12:47] VITALS: BP 119/75; PULSE 98; RESP 18
[2024-05-10] MEDS: HYDROCODONE/ACETAMINOPHEN 10/325MG TABLET PO PRN (12:47)
[2024-05-10] MEDS ORDERED: HYDRALAZINE 10 MG in SODIUM CHLORIDE 0.9% 49.5 ML IV PRN (14:45)
[2024-05-10] MEDS ORDERED: NALOXONE HCL 0.4MG/ML VIAL IV PRN (14:45)
[2024-05-11] MEDS ORDERED: PHYTONADIONE 10MG/ML INJ SUBCUT SCH (09:00)
== END 2024-05-10 16:00 | disposition left against medical advice (07) | DRG 230 ==
LOC: ER 03:33 → 6EST 10:39 → 6WST 04-29 23:26 → CVICU 05-01 04:35 → 8WST 05-02 10:36 → 7EST 05-05 13:41
PROVIDERS: ADMIT Internal Medicine; ATTEND Internal Medicine
PROC: 0DN80ZZ Release Small Intestine, Open Approach (ICD-10-PCS; principal; 2024-04-21)
PROC: 0DB80ZZ Excision of Small Intestine, Open Approach (ICD-10-PCS; 2024-04-28)
PROC: 0DB80ZZ Excision of Small Intestine, Open Approach (ICD-10-PCS; 2024-04-28)
PROC: 0DB80ZZ Excision of Small Intestine, Open Approach (ICD-10-PCS; 2024-04-28)
PROC: 02HV33Z Insertion of Infusion Device into Superior Vena Cava, Percutaneous Approach (ICD-10-PCS; 2024-04-28)
PROC: B548ZZA Ultrasonography of Superior Vena Cava, Guidance (ICD-10-PCS; 2024-04-28)
DX: K56.51 Intestinal adhesions [bands], with partial obstruction (principal); R65.21 Severe sepsis with septic shock; A41.9 Sepsis, unspecified organism; N17.9 Acute kidney failure, unspecified; K52.9 Noninfective gastroenteritis and colitis, unspecified; K76.9 Liver disease, unspecified; R00.0 Tachycardia, unspecified; Z20.822 Contact with and (suspected) exposure to COVID-19; E87.0 Hyperosmolality and hypernatremia; E86.0 Dehydration; E87.5 Hyperkalemia; K56.7 Ileus, unspecified; Z93.3 Colostomy status; Z53.29 Procedure and treatment not carried out because of patient's decision for other reasons
CPT/HCPCS: 36415; 36573; 71045; 74018; 74176; 74250; 80048; 80076; 80202; 80305; 81003; 82040; 82962; 83735; 84075; 84100; 84145; 84450; 84460; 84478; 84484; 85025; 86850; 86900; 87077; 87186; 88307; 93005; 93970; 99285; A4606; C1725; C1758; C1893; J0330; J0665; J0696; J1171; J1200; J1630; J1650; J1885; J2003; J2060; J2250; J2270; J2405; J2470; J2543; J2704; J2710; J3010; J3370; J3490; J7030; J7042; J7070; J7120; P9041; Q9963

== ENCOUNTER 2024-06-09 15:47 | Emergency (ER) | payer MEDICAID ==
[~2024-06-09] VITALS: Ht 182.9 cm; Wt 90.7 kg
[~2024-06-09 15:47] MED LIST: BUPR300T52 PO; QUET300T2 PO
[2024-06-09 15:52] VITALS: O2SAT 99
[2024-06-09] MEDS: OXYCODONE HCL/ACETAMINOPHEN 5/325MG TABLET PO ONE (17:53)
[2024-06-09 17:55] VITALS: BP 148/83; PULSE 92; RESP 16; TEMP 36.7; O2SAT 98
== END 2024-06-09 17:59 | disposition home or self-care (01) ==
LOC: ER 15:47
DX: Z76.0 Encounter for issue of repeat prescription (principal); K56.699 Other intestinal obstruction unspecified as to partial versus complete obstruction
CPT/HCPCS: 99283